=== PATIENT | male | born 1930 | race Caucasian/White ===

== ENCOUNTER 2018-01-03 15:52 | Inpatient (IN) | payer OTHER, MEDICARE ==
[2018-01-03 16:26] LABS: ADD MAN DIFF? NO
[2018-01-03 16:28] LABS: WHITE BLOOD COUNT 7.9 10^3/ul (4.8-10.8)
[2018-01-03 16:28] LABS: BASOPHIL # 0.1 10^3/ul (0.0-0.1); BASOPHILS % 0.8 % (0.0-2.0); EOSINOPHILS # 0.1 10^3/ul (0.0-0.5); EOSINOPHILS % 1.5 % (0.0-7.0); HEMATOCRIT 34.5 % (42.0-52.0); HEMOGLOBIN 11.1 g/dl (14.0-18.0); LYMPHOCYTES # 0.6 10^3/ul (0.8-2.9); LYMPHOCYTES % 7.8 % (15.0-51.0); MEAN CORPUSCULAR HEMOGLOBIN 30.3 pg (29.0-33.0); MEAN CORPUSCULAR HGB CONC 32.2 g/dl (32.0-37.0); MEAN CORPUSCULAR VOLUME 94.3 fl (82.0-101.0); MONOCYTE # 0.7 10^3/ul (0.3-0.9); MONOCYTES % 9.1 % (0.0-11.0); NEUTROPHIL # 6.3 10^3/ul (1.6-7.5); PLATELET COUNT 162 10^3/UL (140-415); RED BLOOD COUNT 3.66 10^6/ul (4.70-6.10); RED CELL DISTRIBUTION WIDTH 14.6 % (11.5-14.5)
[2018-01-03 16:48] LABS: INR 1.99; PROTIME 23.1 Sec (11.9-14.9); PT RATIO 1.8
[2018-01-03 16:49] LABS: PARTIAL THROMBOPLASTIN TIME 41.4 Sec (25.0-35.0)
[2018-01-03 16:54] LABS: ALANINE AMINOTRANSFERASE 22 IU/L (13-69); ALBUMIN/GLOBULIN RATIO 1.07; ALKALINE PHOSPHATASE 64 IU/L (42-121); ANION GAP 13 (8-16); ASPARTATE AMINO TRANSFERASE 19 IU/L (15-46); BILIRUBIN,INDIRECT 0.5 mg/dl (0-1.1); BILIRUBIN,TOTAL 0.5 mg/dl (0.2-1.3); BLOOD UREA NITROGEN 17 mg/dl (7-20); CALCIUM 8.7 mg/dl (8.4-10.2); CARBON DIOXIDE 27 mmol/L (21-31); CHLORIDE 105 mmol/L (97-110); CREATININE 0.89 mg/dl (0.61-1.24); GLUCOSE 176 mg/dl (70-220); POTASSIUM 4.2 mmol/L (3.5-5.1); SODIUM 141 mmol/L (135-144); TOTAL PROTEIN 5.8 g/dl (6.1-8.1)
[2018-01-03] MEDS: SOD CHLORIDE 0.9% 500 ML IV ×2 (17:00→19:52)
[2018-01-03] MEDS: PANTOPRAZOLE IV 80 MG in SOD CHLORIDE 0.9% 100 ML IVPB (17:01)
[2018-01-03 17:04] LABS: TROPONIN-I 0.012 ng/ml (0.000-0.120)
[2018-01-03] MEDS: PANTOPRAZOLE IV 80 MG in SOD CHLORIDE 0.9% 100 ML IV (17:33)
[2018-01-03 17:48] LABS: DIGOXIN 0.6 ng/ml (1.0-2.0)
[2018-01-03 20:14] LABS: HEMATOCRIT 29.7 % (42.0-52.0); HEMOGLOBIN 9.5 g/dl (14.0-18.0)
[2018-01-03] MEDS ORDERED: ONDANSETRON 4 MG INJ IV ×2 (20:30→21:00)
[2018-01-03] MEDS ORDERED: ACETAMINOPHEN 325 MG TAB PO (20:30)
[2018-01-03] MEDS: SOD CHLORIDE 0.9% 1,000 ML IV (20:43)
[2018-01-03] MEDS ORDERED: ALBUTEROL/IPRATROPIUM (NEB) 3 ML AMP NEB (21:00)
[2018-01-03] MEDS ORDERED: morphine 2 MG INJ IV (21:00)
[2018-01-03] MEDS: BISACODYL (EC) 5 MG TAB PO (21:30)
[2018-01-04 00:56] LABS: IMMEDIATE SPIN CROSSMATCH 1
[2018-01-04] MEDS: PANTOPRAZOLE IV 80 MG in SOD CHLORIDE 0.9% 100 ML IV ×4 (05:33→16:19)
[2018-01-04 05:48] LABS: HEMOGLOBIN A1C 6.2 % (0-5.9)
[2018-01-04 06:09] LABS: MAGNESIUM 1.7 mg/dl (1.7-2.5)
[2018-01-04 06:11] LABS: ALANINE AMINOTRANSFERASE 22 IU/L (13-69); ALBUMIN 2.5 g/dl (3.3-4.9); ALKALINE PHOSPHATASE 54 IU/L (42-121); ANION GAP 12 (8-16); ASPARTATE AMINO TRANSFERASE 17 IU/L (15-46); BILIRUBIN,INDIRECT 0.8 mg/dl (0-1.1); BILIRUBIN,TOTAL 0.8 mg/dl (0.2-1.3); BLOOD UREA NITROGEN 21 mg/dl (7-20); CALCIUM 8.3 mg/dl (8.4-10.2); CARBON DIOXIDE 24 mmol/L (21-31); CHLORIDE 113 mmol/L (97-110); CREATININE 0.83 mg/dl (0.61-1.24); GLUCOSE 132 mg/dl (70-220); POTASSIUM 4.6 mmol/L (3.5-5.1); SODIUM 144 mmol/L (135-144)
[2018-01-04] MEDS: POLYETHYLENE GLYCOL 3350 119 GM POWDER PO (06:36)
[2018-01-04] MEDS: BISACODYL (EC) 5 MG TAB PO (08:00)
[2018-01-04] MEDS ORDERED: ALBUTEROL HFA 8 GM INHALER INH (09:30)
[2018-01-04] MEDS: ATENOLOL 25 MG TAB PO (10:00)
[2018-01-04] MEDS: SOD CHLORIDE 0.9% 1,000 ML IV (10:56)
[2018-01-04 12:15] LABS: ADD MAN DIFF? NO
[2018-01-04 12:19] LABS: BASOPHIL # 0.1 10^3/ul (0.0-0.1); BASOPHILS % 0.5 % (0.0-2.0); EOSINOPHILS # 0.3 10^3/ul (0.0-0.5); EOSINOPHILS % 3.6 % (0.0-7.0); HEMATOCRIT 27.6 % (42.0-52.0); HEMOGLOBIN 9.3 g/dl (14.0-18.0); LYMPHOCYTES % 10.8 % (15.0-51.0); MEAN CORPUSCULAR HEMOGLOBIN 30.5 pg (29.0-33.0); MEAN CORPUSCULAR HGB CONC 33.7 g/dl (32.0-37.0); MEAN CORPUSCULAR VOLUME 90.5 fl (82.0-101.0); MEAN PLATELET VOLUME 11.2 fl (7.4-10.4); MONOCYTE # 1.1 10^3/ul (0.3-0.9); MONOCYTES % 11.2 % (0.0-11.0); NEUTROPHILS % 73.1 % (39.0-77.0); PLATELET COUNT 118 10^3/UL (140-415); RED BLOOD COUNT 3.05 10^6/ul (4.70-6.10); RED CELL DISTRIBUTION WIDTH 15.3 % (11.5-14.5)
[2018-01-04 12:19] LABS: WHITE BLOOD COUNT 9.6 10^3/ul (4.8-10.8)
[2018-01-04] MEDS: DIGOXIN 0.125 MG TAB PO (13:00)
[2018-01-04 14:16] LABS: INR 1.63; PROTIME 19.7 Sec (11.9-14.9); PT RATIO 1.5
[2018-01-04] MEDS ORDERED: EPHEDrine SULFATE 50 MG/5 ML SYG IV (19:30)
[2018-01-04] MEDS ORDERED: hydrALAzine 20 MG INJ IV (19:30)
[2018-01-04] MEDS ORDERED: ONDANSETRON 4 MG INJ IV (19:30)
[2018-01-04] MEDS ORDERED: DIPHENHYDRAMINE 50 MG INJ IV (19:30)
[2018-01-04] MEDS ORDERED: LABETALOL HCL 20MG INJ IV (19:30)
[2018-01-04] MEDS ORDERED: morphine 2 MG INJ IV (19:30)
[2018-01-04] MEDS ORDERED: MIDAZOLAM 1 MG/ML 2 ML INJ IV (19:30)
[2018-01-04 20:58] LABS: ADD MAN DIFF? NO
[2018-01-04 21:00] LABS: BASOPHIL # 0.1 10^3/ul (0.0-0.1); BASOPHILS % 0.7 % (0.0-2.0); EOSINOPHILS # 0.9 10^3/ul (0.0-0.5); EOSINOPHILS % 10.6 % (0.0-7.0); HEMATOCRIT 28.2 % (42.0-52.0); HEMOGLOBIN 9.2 g/dl (14.0-18.0); LYMPHOCYTES # 1.3 10^3/ul (0.8-2.9); LYMPHOCYTES % 16.1 % (15.0-51.0); MEAN CORPUSCULAR HEMOGLOBIN 29.8 pg (29.0-33.0); MEAN CORPUSCULAR HGB CONC 32.6 g/dl (32.0-37.0); MEAN CORPUSCULAR VOLUME 91.3 fl (82.0-101.0); MONOCYTE # 0.9 10^3/ul (0.3-0.9); MONOCYTES % 11.3 % (0.0-11.0); NEUTROPHIL # 4.9 10^3/ul (1.6-7.5); NEUTROPHILS % 60.6 % (39.0-77.0); PLATELET COUNT 114 10^3/UL (140-415); RED BLOOD COUNT 3.09 10^6/ul (4.70-6.10); RED CELL DISTRIBUTION WIDTH 15.7 % (11.5-14.5)
[2018-01-04 21:00] LABS: WHITE BLOOD COUNT 8.2 10^3/ul (4.8-10.8)
[2018-01-04] MEDS: PEG/ELECTROLYTES 4L BTL PO (22:01)
[2018-01-05] MEDS: PANTOPRAZOLE IV 80 MG in SOD CHLORIDE 0.9% 100 ML IV ×3 (00:31→13:22)
[2018-01-05] MEDS: SOD CHLORIDE 0.9% 1,000 ML IV ×3 (00:39→17:09)
[2018-01-05 03:45] LABS: ADD MAN DIFF? NO
[2018-01-05 04:06] LABS: ABNORMAL IP MESSAGE 1; BASOPHIL # 0.1 10^3/ul (0.0-0.1); BASOPHILS % 0.7 % (0.0-2.0); EOSINOPHILS # 0.7 10^3/ul (0.0-0.5); EOSINOPHILS % 10.4 % (0.0-7.0); HEMOGLOBIN 9.1 g/dl (14.0-18.0); LYMPHOCYTES # 1.1 10^3/ul (0.8-2.9); LYMPHOCYTES % 15.9 % (15.0-51.0); MEAN CORPUSCULAR HEMOGLOBIN 31.3 pg (29.0-33.0); MEAN CORPUSCULAR HGB CONC 33.7 g/dl (32.0-37.0); MEAN CORPUSCULAR VOLUME 92.8 fl (82.0-101.0); MEAN PLATELET VOLUME 11.9 fl (7.4-10.4); MONOCYTE # 0.8 10^3/ul (0.3-0.9); NEUTROPHIL # 4.4 10^3/ul (1.6-7.5); NEUTROPHILS % 61.3 % (39.0-77.0); PLATELET COUNT 94 10^3/UL (140-415); POSITIVE DIFF @See below; RED BLOOD COUNT 2.91 10^6/ul (4.70-6.10); RED CELL DISTRIBUTION WIDTH 15.6 % (11.5-14.5)
[2018-01-05 04:06] LABS: WHITE BLOOD COUNT 7.1 10^3/ul (4.8-10.8)
[2018-01-05 04:09] LABS: MAGNESIUM 1.8 mg/dl (1.7-2.5)
[2018-01-05 04:09] LABS: INR 1.67; PT RATIO 1.6
[2018-01-05 04:11] LABS: ANION GAP 12 (8-16); BLOOD UREA NITROGEN 20 mg/dl (7-20); CALCIUM 8.3 mg/dl (8.4-10.2); CARBON DIOXIDE 25 mmol/L (21-31); CHLORIDE 113 mmol/L (97-110); CREATININE 0.72 mg/dl (0.61-1.24); GLUCOSE 103 mg/dl (70-220); POTASSIUM 4.7 mmol/L (3.5-5.1); SODIUM 145 mmol/L (135-144)
[2018-01-05] MEDS: ATENOLOL 25 MG TAB PO ×2 (08:02→09:31)
[2018-01-05 09:14] LABS: ADD MAN DIFF? NO
[2018-01-05 09:22] LABS: WHITE BLOOD COUNT 6.4 10^3/ul (4.8-10.8)
[2018-01-05 09:22] LABS: BASOPHIL # 0.1 10^3/ul (0.0-0.1); BASOPHILS % 0.8 % (0.0-2.0); EOSINOPHILS # 0.7 10^3/ul (0.0-0.5); EOSINOPHILS % 10.9 % (0.0-7.0); HEMATOCRIT 25.5 % (42.0-52.0); HEMOGLOBIN 8.5 g/dl (14.0-18.0); LYMPHOCYTES # 0.8 10^3/ul (0.8-2.9); LYMPHOCYTES % 13.1 % (15.0-51.0); MEAN CORPUSCULAR HEMOGLOBIN 30.7 pg (29.0-33.0); MEAN CORPUSCULAR HGB CONC 33.3 g/dl (32.0-37.0); MEAN CORPUSCULAR VOLUME 92.1 fl (82.0-101.0); MEAN PLATELET VOLUME 11.1 fl (7.4-10.4); MONOCYTE # 0.7 10^3/ul (0.3-0.9); MONOCYTES % 10.6 % (0.0-11.0); NEUTROPHIL # 4.1 10^3/ul (1.6-7.5); NEUTROPHILS % 63.8 % (39.0-77.0); PLATELET COUNT 114 10^3/UL (140-415); RED BLOOD COUNT 2.77 10^6/ul (4.70-6.10); RED CELL DISTRIBUTION WIDTH 15.2 % (11.5-14.5)
[2018-01-05] MEDS: DIGOXIN 0.125 MG TAB PO (12:38)
[2018-01-05 12:48] LABS: HEMOGLOBIN A1C 6.2 % (0-5.9)
[2018-01-05] MEDS ORDERED: ONDANSETRON 4 MG INJ IV (15:00)
[2018-01-05] MEDS ORDERED: hydrALAzine 20 MG INJ IV (15:00)
[2018-01-05] MEDS ORDERED: LABETALOL HCL 20MG INJ IV (15:00)
[2018-01-05] MEDS: hydrALAzine 20 MG INJ IV (15:05)
[2018-01-05] MEDS: MIDAZOLAM 1 MG/ML 2 ML INJ (15:58)
[2018-01-05] MEDS: PROPOFOL 20 ML (15:58)
[2018-01-05] MEDS: ETOMIDATE 20 MG INJ (15:58)
[2018-01-05 17:01] LABS: ADD MAN DIFF? NO
[2018-01-05 17:03] LABS: BASOPHIL # 0.1 10^3/ul (0.0-0.1); BASOPHILS % 0.7 % (0.0-2.0); EOSINOPHILS # 0.6 10^3/ul (0.0-0.5); EOSINOPHILS % 8.8 % (0.0-7.0); HEMATOCRIT 28.5 % (42.0-52.0); HEMOGLOBIN 9.4 g/dl (14.0-18.0); LYMPHOCYTES # 1.2 10^3/ul (0.8-2.9); LYMPHOCYTES % 17.6 % (15.0-51.0); MEAN CORPUSCULAR HEMOGLOBIN 30.6 pg (29.0-33.0); MEAN CORPUSCULAR VOLUME 92.8 fl (82.0-101.0); MEAN PLATELET VOLUME 10.7 fl (7.4-10.4); MONOCYTE # 0.8 10^3/ul (0.3-0.9); MONOCYTES % 11.7 % (0.0-11.0); NEUTROPHIL # 4.1 10^3/ul (1.6-7.5); NEUTROPHILS % 59.7 % (39.0-77.0); PLATELET COUNT 125 10^3/UL (140-415); RED BLOOD COUNT 3.07 10^6/ul (4.70-6.10); RED CELL DISTRIBUTION WIDTH 15.3 % (11.5-14.5)
[2018-01-05 17:03] LABS: WHITE BLOOD COUNT 6.8 10^3/ul (4.8-10.8)
[2018-01-05] MEDS: EPHEDrine SULFATE 50 MG/5 ML SYG (17:22)
[2018-01-05] MEDS: CARAFATE 1 GM/10 ML PR (20:25)
[2018-01-05 22:35] LABS: ADD MAN DIFF? NO
[2018-01-05 22:36] LABS: WHITE BLOOD COUNT 5.7 10^3/ul (4.8-10.8)
[2018-01-05 22:36] LABS: BASOPHILS % 0.7 % (0.0-2.0); EOSINOPHILS # 0.5 10^3/ul (0.0-0.5); EOSINOPHILS % 9.1 % (0.0-7.0); HEMATOCRIT 26.1 % (42.0-52.0); HEMOGLOBIN 8.8 g/dl (14.0-18.0); LYMPHOCYTES % 17.5 % (15.0-51.0); MEAN CORPUSCULAR HEMOGLOBIN 31.3 pg (29.0-33.0); MEAN CORPUSCULAR HGB CONC 33.7 g/dl (32.0-37.0); MEAN CORPUSCULAR VOLUME 92.9 fl (82.0-101.0); MEAN PLATELET VOLUME 10.8 fl (7.4-10.4); MONOCYTE # 0.8 10^3/ul (0.3-0.9); MONOCYTES % 14.7 % (0.0-11.0); NEUTROPHIL # 3.2 10^3/ul (1.6-7.5); NEUTROPHILS % 56.9 % (39.0-77.0); PLATELET COUNT 116 10^3/UL (140-415); RED BLOOD COUNT 2.81 10^6/ul (4.70-6.10); RED CELL DISTRIBUTION WIDTH 15.2 % (11.5-14.5)
[2018-01-06] MEDS: PANTOPRAZOLE IV 80 MG in SOD CHLORIDE 0.9% 100 ML IV ×3 (01:38→20:48)
[2018-01-06] MEDS: SOD CHLORIDE 0.9% 1,000 ML IV ×2 (05:41→08:25)
[2018-01-06 06:13] LABS: ANION GAP 12 (8-16); BLOOD UREA NITROGEN 13 mg/dl (7-20); CALCIUM 8.1 mg/dl (8.4-10.2); CARBON DIOXIDE 24 mmol/L (21-31); CHLORIDE 113 mmol/L (97-110); CREATININE 0.75 mg/dl (0.61-1.24); GLUCOSE 105 mg/dl (70-220); POTASSIUM 3.5 mmol/L (3.5-5.1); SODIUM 145 mmol/L (135-144)
[2018-01-06] MEDS ORDERED: EPINEPHrine 0.1 MG/ML SYG (07:00)
[2018-01-06] MEDS: ATENOLOL 25 MG TAB PO (08:25)
[2018-01-06] MEDS: SOD CHLORIDE 0.9% 250 ML IV* (09:45)
[2018-01-06] MEDS ORDERED: CEPASTAT LOZENGE MT (10:00)
[2018-01-06] MEDS: CARAFATE 1 GM/10 ML PR ×2 (11:10→22:02)
[2018-01-06] MEDS: ALBUTEROL/IPRATROPIUM (NEB) 3 ML AMP NEB ×3 (11:19→20:32)
[2018-01-06 11:20] LABS: IMMEDIATE SPIN CROSSMATCH 1 4
[2018-01-06] MEDS: DIPHENHYDRAMINE 50 MG INJ IV ×2 (13:06→16:01)
[2018-01-06] MEDS: DIGOXIN 0.125 MG TAB PO (13:13)
[2018-01-06] MEDS ORDERED: morphine LIQ (10 MG/5 ML) CUP PO (14:00)
[2018-01-06 14:32] LABS: HEMATOCRIT 18.1 % (42.0-52.0)
[2018-01-06 14:38] LABS: HEMOGLOBIN 5.9 g/dl (14.0-18.0)
[2018-01-06 15:28] LABS: POST-TRANSFUSION BILIRUBIN 0.3 mg/dl
[2018-01-06 15:28] LABS: PRETRANSFUSION BILIRUBIN 0.4 mg/dl
[2018-01-06 15:36] LABS: INR 1.76; PROTIME 20.9 Sec (11.9-14.9); PT RATIO 1.6
[2018-01-06 17:21] LABS: ADD UMIC NO; UR ASCORBIC ACID 40 mg/dL (NEGATIVE); UR BILIRUBIN (Dip) NEGATIVE (NEGATIVE); UR BLOOD (Dip) NEGATIVE (NEGATIVE); UR CLARITY SLIGHTLY CLOUDY (CLEAR); UR COLOR YELLOW (YELLOW); UR GLUCOSE (Dip) 1+ mg/dL (NEGATIVE); UR KETONES (Dip) NEGATIVE (NEGATIVE); UR LEUKOCYTE ESTERASE (Dip) NEGATIVE Leu/ul (NEGATIVE); UR MUCUS FEW /HPF (NONE SEEN); UR NITRITE (Dip) NEGATIVE (NEGATIVE); UR RBC 6 /HPF (0-5); UR SPECIFIC GRAVITY (Dip) 1.017 (1.003-1.030); UR TOTAL PROTEIN (Dip) NEGATIVE (NEGATIVE); UR UROBILINOGEN (Dip) NEGATIVE (NEGATIVE); UR WBC 4 /HPF (0-5)
[2018-01-06] MEDS ORDERED: LIDOCAINE 100 MG SYRINGE (18:38)
[2018-01-06] MEDS ORDERED: PROPOFOL 40 ML (18:38)
[2018-01-06 19:17] LABS: HEMATOCRIT 22.4 % (42.0-52.0); HEMOGLOBIN 7.4 g/dl (14.0-18.0)
[2018-01-07 01:02] LABS: HEMATOCRIT 21.2 % (42.0-52.0); HEMOGLOBIN 7.1 g/dl (14.0-18.0)
[2018-01-07] MEDS: ALBUTEROL/IPRATROPIUM (NEB) 3 ML AMP NEB (02:13)
[2018-01-07] MEDS: PANTOPRAZOLE IV 80 MG in SOD CHLORIDE 0.9% 100 ML IV (05:39)
[2018-01-07] MEDS: SOD CHLORIDE 0.9% 1,000 ML IV ×2 (05:40→20:56)
[2018-01-07 06:28] LABS: ADD MAN DIFF? NO
[2018-01-07 06:31] LABS: ABNORMAL IP MESSAGE 1; BASOPHILS % 0.5 % (0.0-2.0); EOSINOPHILS # 0.2 10^3/ul (0.0-0.5); EOSINOPHILS % 2.9 % (0.0-7.0); HEMATOCRIT 19.6 % (42.0-52.0); LYMPHOCYTES # 0.8 10^3/ul (0.8-2.9); LYMPHOCYTES % 11.5 % (15.0-51.0); MEAN CORPUSCULAR HEMOGLOBIN 29.7 pg (29.0-33.0); MEAN CORPUSCULAR HGB CONC 33.2 g/dl (32.0-37.0); MEAN CORPUSCULAR VOLUME 89.5 fl (82.0-101.0); MEAN PLATELET VOLUME 11.2 fl (7.4-10.4); MONOCYTE # 0.7 10^3/ul (0.3-0.9); MONOCYTES % 10.4 % (0.0-11.0); NEUTROPHIL # 4.9 10^3/ul (1.6-7.5); NEUTROPHILS % 73.6 % (39.0-77.0); PLATELET COUNT 109 10^3/UL (140-415); POSITIVE DIFF @See below; RED BLOOD COUNT 2.19 10^6/ul (4.70-6.10); RED CELL DISTRIBUTION WIDTH 15.9 % (11.5-14.5)
[2018-01-07 06:31] LABS: WHITE BLOOD COUNT 6.6 10^3/ul (4.8-10.8)
[2018-01-07 06:41] LABS: HEMOGLOBIN 6.5 g/dl (14.0-18.0)
[2018-01-07 06:55] LABS: MAGNESIUM 1.7 mg/dl (1.7-2.5)
[2018-01-07 07:01] LABS: INR 1.69; PROTIME 20.2 Sec (11.9-14.9); PT RATIO 1.6
[2018-01-07 07:03] LABS: ANION GAP 10 (8-16); BLOOD UREA NITROGEN 12 mg/dl (7-20); CALCIUM 7.5 mg/dl (8.4-10.2); CARBON DIOXIDE 23 mmol/L (21-31); CHLORIDE 114 mmol/L (97-110); CREATININE 0.72 mg/dl (0.61-1.24); GLUCOSE 123 mg/dl (70-220); POTASSIUM 3.7 mmol/L (3.5-5.1); SODIUM 143 mmol/L (135-144)
[2018-01-07] MEDS: ATENOLOL 25 MG TAB PO (08:56)
[2018-01-07] MEDS: GUAIFENESIN 20 MG/ML 5ML CUP PO ×2 (09:51→15:45)
[2018-01-07] MEDS: CARAFATE 1 GM/10 ML PR ×2 (09:55→20:56)
[2018-01-07] MEDS: SOD CHLORIDE 0.9% 250 ML IV* (09:58)
[2018-01-07 12:57] LABS: IMMEDIATE SPIN CROSSMATCH 1 4
[2018-01-07] MEDS: DIGOXIN 0.125 MG TAB PO (13:01)
[2018-01-07] MEDS: PANTOPRAZOLE 40 MG INJ IV (17:22)
[2018-01-07 17:50] LABS: HEMATOCRIT 26.3 % (42.0-52.0); HEMOGLOBIN 8.7 g/dl (14.0-18.0)
[2018-01-07 20:58] LABS: HEMATOCRIT 25.5 % (42.0-52.0); HEMOGLOBIN 8.5 g/dl (14.0-18.0)
[2018-01-08 00:51] LABS: HEMATOCRIT 24.5 % (42.0-52.0); HEMOGLOBIN 8.2 g/dl (14.0-18.0)
[2018-01-08] MEDS: PANTOPRAZOLE 40 MG INJ IV ×2 (05:00→17:55)
[2018-01-08 05:25] LABS: HEMATOCRIT 23.8 % (42.0-52.0); HEMOGLOBIN 7.9 g/dl (14.0-18.0)
[2018-01-08 05:46] LABS: ANION GAP 8 (8-16); BLOOD UREA NITROGEN 9 mg/dl (7-20); CARBON DIOXIDE 24 mmol/L (21-31); CHLORIDE 112 mmol/L (97-110); CREATININE 0.75 mg/dl (0.61-1.24); GLUCOSE 102 mg/dl (70-220); POTASSIUM 3.4 mmol/L (3.5-5.1); SODIUM 141 mmol/L (135-144)
[2018-01-08] MEDS: ATENOLOL 25 MG TAB PO (08:36)
[2018-01-08] MEDS: POTASSIUM CHLORIDE (SR) 20 MEQ TAB PO (11:30)
[2018-01-08] MEDS: CARAFATE 1 GM/10 ML PR (11:31)
[2018-01-08 12:22] LABS: HEMATOCRIT 25.2 % (42.0-52.0); HEMOGLOBIN 8.4 g/dl (14.0-18.0)
[2018-01-08] MEDS: DIGOXIN 0.125 MG TAB PO (13:24)
[2018-01-08] MEDS: ALBUTEROL HFA 8 GM INHALER INH ×2 (15:36→22:41)
[2018-01-08] MEDS: SOD CHLORIDE 0.9% 1,000 ML IV (16:52)
[2018-01-08 18:11] LABS: HEMATOCRIT 24.5 % (42.0-52.0)
[2018-01-08] MEDS: hydrALAzine 20 MG INJ IV (21:32)
[2018-01-08 22:01] LABS: HEMOGLOBIN 8.5 g/dl (14.0-18.0)
[2018-01-09] MEDS ORDERED: FUROSEMIDE 20 MG INJ (00:37)
[2018-01-09] MEDS ORDERED: METHYLPREDNISOLONE 125 MG INJ (00:38)
[2018-01-09] MEDS: CARAFATE 1 GM/10 ML PR (00:46)
[2018-01-09] MEDS: ALBUTEROL/IPRATROPIUM (NEB) 3 ML AMP HHN ×6 (00:57→20:00)
[2018-01-09] MEDS: METHYLPREDNISOLONE 125 MG INJ IV (01:37)
[2018-01-09] MEDS: FUROSEMIDE 20 MG INJ IV (01:38)
[2018-01-09 01:56] LABS: HEMATOCRIT 26.9 % (42.0-52.0); HEMOGLOBIN 8.9 g/dl (14.0-18.0)
[2018-01-09] MEDS: PANTOPRAZOLE 40 MG INJ IV (06:26)
[2018-01-09 07:06] LABS: HEMATOCRIT 26.8 % (42.0-52.0); HEMOGLOBIN 8.8 g/dl (14.0-18.0)
[2018-01-09 07:38] LABS: ANION GAP 11 (8-16); BLOOD UREA NITROGEN 8 mg/dl (7-20); CALCIUM 8.4 mg/dl (8.4-10.2); CARBON DIOXIDE 20 mmol/L (21-31); CHLORIDE 112 mmol/L (97-110); CREATININE 0.67 mg/dl (0.61-1.24); GLUCOSE 150 mg/dl (70-220); POTASSIUM 4.4 mmol/L (3.5-5.1); SODIUM 139 mmol/L (135-144)
[2018-01-09] MEDS: ATENOLOL 25 MG TAB PO (09:01)
[2018-01-09] MEDS: DIGOXIN 0.125 MG TAB PO (15:15)
[2018-01-09 18:46] LABS: HEMATOCRIT 24.8 % (42.0-52.0); HEMOGLOBIN 8.3 g/dl (14.0-18.0)
[2018-01-10] MEDS: ALBUTEROL/IPRATROPIUM (NEB) 3 ML AMP HHN ×6 (01:34→20:40)
[2018-01-10] MEDS: PANTOPRAZOLE (EC) 40 MG TAB PO (05:48)
[2018-01-10 07:24] LABS: INR 1.16; PT RATIO 1.2
[2018-01-10 07:33] LABS: HEMATOCRIT 23.3 % (42.0-52.0); HEMOGLOBIN 7.7 g/dl (14.0-18.0)
[2018-01-10] MEDS: ATENOLOL 25 MG TAB PO (08:42)
[2018-01-10] MEDS: POLYETHYLENE GLYCOL 17 GM PACKET PO (10:35)
[2018-01-10 12:23] LABS: HEMATOCRIT 24.8 % (42.0-52.0); HEMOGLOBIN 8.1 g/dl (14.0-18.0)
[2018-01-10] MEDS: DIGOXIN 0.125 MG TAB PO (13:26)
[2018-01-10 18:23] LABS: HEMATOCRIT 25.4 % (42.0-52.0); HEMOGLOBIN 8.4 g/dl (14.0-18.0)
[2018-01-10] MEDS: FUROSEMIDE 20 MG INJ IV (18:26)
[2018-01-11] MEDS: ALBUTEROL/IPRATROPIUM (NEB) 3 ML AMP HHN ×5 (01:00→16:24)
[2018-01-11] MEDS: PANTOPRAZOLE (EC) 40 MG TAB PO (05:51)
[2018-01-11 07:06] LABS: HEMOGLOBIN 7.7 g/dl (14.0-18.0)
[2018-01-11 07:06] LABS: HEMATOCRIT 23.4 % (42.0-52.0)
[2018-01-11] MEDS: POLYETHYLENE GLYCOL 17 GM PACKET PO (09:19)
[2018-01-11] MEDS: FUROSEMIDE 20 MG INJ IV ×2 (09:19→18:26)
[2018-01-11] MEDS: ATENOLOL 25 MG TAB PO (09:19)
[2018-01-11] MEDS: DIGOXIN 0.125 MG TAB PO (12:24)
[2018-01-11] MEDS: ENOXAPARIN 100 MG/ML SYG SC ×2 (16:09→20:55)
[2018-01-11] MEDS: WARFARIN 2.5 MG TAB PO (16:13)
[2018-01-11] MEDS: MAGNESIUM CITRATE 300 ML BTL PO (16:42)
[2018-01-12 05:57] LABS: ADD MAN DIFF? NO
[2018-01-12 06:04] LABS: BASOPHIL # 0.1 10^3/ul (0.0-0.1); BASOPHILS % 0.9 % (0.0-2.0); EOSINOPHILS # 0.7 10^3/ul (0.0-0.5); EOSINOPHILS % 10.5 % (0.0-7.0); HEMATOCRIT 24.3 % (42.0-52.0); HEMOGLOBIN 8.1 g/dl (14.0-18.0); LYMPHOCYTES # 0.8 10^3/ul (0.8-2.9); LYMPHOCYTES % 13.2 % (15.0-51.0); MEAN CORPUSCULAR HEMOGLOBIN 30.6 pg (29.0-33.0); MEAN CORPUSCULAR HGB CONC 33.3 g/dl (32.0-37.0); MEAN CORPUSCULAR VOLUME 91.7 fl (82.0-101.0); MEAN PLATELET VOLUME 9.9 fl (7.4-10.4); MONOCYTE # 0.9 10^3/ul (0.3-0.9); MONOCYTES % 13.7 % (0.0-11.0); NEUTROPHIL # 3.9 10^3/ul (1.6-7.5); NEUTROPHILS % 61.2 % (39.0-77.0); PLATELET COUNT 191 10^3/UL (140-415); RED BLOOD COUNT 2.65 10^6/ul (4.70-6.10); RED CELL DISTRIBUTION WIDTH 15.1 % (11.5-14.5)
[2018-01-12 06:04] LABS: WHITE BLOOD COUNT 6.4 10^3/ul (4.8-10.8)
[2018-01-12] MEDS: PANTOPRAZOLE (EC) 40 MG TAB PO (06:25)
[2018-01-12] MEDS: FUROSEMIDE 20 MG INJ IV (06:25)
[2018-01-12 06:41] LABS: INR 1.13; PROTIME 14.7 Sec (11.9-14.9); PT RATIO 1.1
[2018-01-12 07:47] LABS: ANION GAP 10 (8-16); BLOOD UREA NITROGEN 15 mg/dl (7-20); CALCIUM 8.7 mg/dl (8.4-10.2); CARBON DIOXIDE 30 mmol/L (21-31); CHLORIDE 104 mmol/L (97-110); CREATININE 0.73 mg/dl (0.61-1.24); GLUCOSE 108 mg/dl (70-220); SODIUM 140 mmol/L (135-144)
[2018-01-12] MEDS: POLYETHYLENE GLYCOL 17 GM PACKET PO (09:10)
[2018-01-12] MEDS: ATENOLOL 25 MG TAB PO (09:10)
[2018-01-12] MEDS: ENOXAPARIN 100 MG/ML SYG SC ×2 (09:11→20:52)
[2018-01-12] MEDS: DIGOXIN 0.125 MG TAB PO (12:52)
[2018-01-12] MEDS: WARFARIN 2.5 MG TAB PO (18:34)
[2018-01-12] MEDS: FUROSEMIDE 40 MG TAB PO (18:37)
[2018-01-12] MEDS: OXYBUTYNIN 5 MG TAB PO (20:50)
[2018-01-13] MEDS: PANTOPRAZOLE (EC) 40 MG TAB PO (06:03)
[2018-01-13] MEDS: FUROSEMIDE 40 MG TAB PO (06:03)
[2018-01-13 06:21] LABS: ADD MAN DIFF? NO
[2018-01-13 06:30] LABS: BASOPHIL # 0.1 10^3/ul (0.0-0.1); BASOPHILS % 0.7 % (0.0-2.0); EOSINOPHILS # 0.6 10^3/ul (0.0-0.5); EOSINOPHILS % 8.5 % (0.0-7.0); HEMOGLOBIN 8.7 g/dl (14.0-18.0); LYMPHOCYTES # 0.8 10^3/ul (0.8-2.9); LYMPHOCYTES % 11.1 % (15.0-51.0); MEAN CORPUSCULAR HEMOGLOBIN 29.9 pg (29.0-33.0); MEAN CORPUSCULAR HGB CONC 32.2 g/dl (32.0-37.0); MEAN CORPUSCULAR VOLUME 92.8 fl (82.0-101.0); MEAN PLATELET VOLUME 9.9 fl (7.4-10.4); MONOCYTE # 0.9 10^3/ul (0.3-0.9); MONOCYTES % 12.1 % (0.0-11.0); NEUTROPHILS % 66.9 % (39.0-77.0); PLATELET COUNT 225 10^3/UL (140-415); RED BLOOD COUNT 2.91 10^6/ul (4.70-6.10); RED CELL DISTRIBUTION WIDTH 14.7 % (11.5-14.5)
[2018-01-13 06:30] LABS: WHITE BLOOD COUNT 7.5 10^3/ul (4.8-10.8)
[2018-01-13 07:10] LABS: INR 1.13; PROTIME 14.7 Sec (11.9-14.9); PT RATIO 1.1
[2018-01-13] MEDS: POLYETHYLENE GLYCOL 17 GM PACKET PO (08:58)
[2018-01-13] MEDS: OXYBUTYNIN 5 MG TAB PO (08:58)
[2018-01-13] MEDS: ATENOLOL 25 MG TAB PO (08:58)
[2018-01-13] MEDS: ENOXAPARIN 100 MG/ML SYG SC (09:00)
[2018-01-13] MEDS: DIGOXIN 0.125 MG TAB PO (12:07)
[2018-01-13] MEDS ORDERED: WARFARIN 5 MG TAB PO (17:00)
== END 2018-01-13 16:20 | disposition home health service (06) | DRG 377 ==
LOC: TEL 01-08 16:31 → E/R 15:52 → MS2 01-11 21:49 → ICU 20:31
PROC: 0DJ08ZZ Inspection of Upper Intestinal Tract, Via Natural or Artificial Opening Endoscopic (ICD-10-PCS; principal; 2018-01-04 17:30)
PROC: 0DJD8ZZ Inspection of Lower Intestinal Tract, Via Natural or Artificial Opening Endoscopic (ICD-10-PCS; 2018-01-04 17:30)
PROC: 0DJD8ZZ Inspection of Lower Intestinal Tract, Via Natural or Artificial Opening Endoscopic (ICD-10-PCS; 2018-01-04 17:30)
PROC: 0W3P8ZZ Control Bleeding in Gastrointestinal Tract, Via Natural or Artificial Opening Endoscopic (ICD-10-PCS; 2018-01-04 17:30)
PROC: 30233K1 Transfusion of Nonautologous Frozen Plasma into Peripheral Vein, Percutaneous Approach (ICD-10-PCS; 2018-01-04 17:30)
PROC: 30233N1 Transfusion of Nonautologous Red Blood Cells into Peripheral Vein, Percutaneous Approach (ICD-10-PCS; 2018-01-04 17:30)
DX: K57.91 Diverticulosis of intestine, part unspecified, without perforation or abscess with bleeding (principal); I50.33 Acute on chronic diastolic (congestive) heart failure; D62 Acute posthemorrhagic anemia; I82.612 Acute embolism and thrombosis of superficial veins of left upper extremity; I48.2 Chronic atrial fibrillation; I25.10 Atherosclerotic heart disease of native coronary artery without angina pectoris; I11.0 Hypertensive heart disease with heart failure; I27.20 Pulmonary hypertension, unspecified; I07.1 Rheumatic tricuspid insufficiency; K62.7 Radiation proctitis; K63.5 Polyp of colon; R73.03 Prediabetes; Z53.8 Procedure and treatment not carried out for other reasons; Z79.01 Long term (current) use of anticoagulants; Z95.2 Presence of prosthetic heart valve; Z95.0 Presence of cardiac pacemaker; Z85.46 Personal history of malignant neoplasm of prostate
CPT/HCPCS: 36415; 36430; 71045; 78278; 80048; 80053; 80162; 81001; 81003; 83036; 83735; 84100; 84443; 84484; 85014; 85018; 85025; 85610; 85730; 86078; 86850; 86900; 86901; 86920; 87081; 93005; 93306; 93971; 94640; 94664; 96374; 96375; 97116; 97161; 97530; 99285-25

== ENCOUNTER 2018-01-18 15:13 | Outpatient (CLI) | payer OTHER, MEDICARE | END 2018-01-18 17:10 | disposition home or self-care (01) | LOC: DCC 15:13 | DX: K92.2 Gastrointestinal hemorrhage, unspecified (principal); I25.10 Atherosclerotic heart disease of native coronary artery without angina pectoris; Z95.2 Presence of prosthetic heart valve; Z85.46 Personal history of malignant neoplasm of prostate | CPT/HCPCS: G0463 ==